=== PATIENT | male | born 1965 | race Two or more races ===

== ENCOUNTER 2019-03-23 12:59 | Outpatient (CLI) | payer OTHER ==
[2019-03-23] MEDS ORDERED: MULT-658 PO (13:34)
== END 2019-03-23 23:59 | disposition home or self-care (01) ==
LOC: STAR 12:59
PROVIDERS: ATTEND Orthopaedic Surgery
DX: Z02.9 Encounter for administrative examinations, unspecified (principal)

== ENCOUNTER 2019-03-27 07:26 | Day surgery (SDC) | payer OTHER ==
[~2019-03-27] VITALS: Ht 177.8 cm; Wt 91.6 kg
[~2019-03-27 07:26] MED LIST: BUPIVACAINE/PF 0.5% ONE; EPINEPHRINE 1 MG/ML, 1ML ONE; LIDOCAINE 1%, 20ML ONE; MULT-658 PO
[2019-03-27 08:04] VITALS: BP 150/95
[2019-03-27] MEDS ORDERED: LACTATED RINGERS 1,000 ML IV SCH (08:20)
[2019-03-27] MEDS ORDERED: MIDAZOLAM 1 MG/ML, 2ML ONE (08:20)
[2019-03-27] MEDS ORDERED: FENTANYL PF 100 MCG/2ML ONE ×2 (08:21→09:55)
[2019-03-27] MEDS ORDERED: DEXAMETHASONE 4 MG/ML, 1ML ONE (08:21)
[2019-03-27] MEDS ORDERED: PROPOFOL 10 MG/ML, 20ML ONE (08:21)
[2019-03-27] MEDS ORDERED: CEFAZOLIN 1,000 MG ONE (08:21)
[2019-03-27] MEDS ORDERED: ONDANSETRON 2MG/ML, 2ML ONE (08:21)
[2019-03-27] MEDS ORDERED: BUPIVACAINE/PF-EPI 0.5% 1:200K INFIL ONE (09:19)
[2019-03-27] MEDS ORDERED: LIDOCAINE 1%-EPI 1:100K, 30ML INFIL ONE (09:19)
[2019-03-27] MEDS ORDERED: ALBUTEROL SULFATE 2.5 MG/3 ML NPPB PRN (09:30)
[2019-03-27] MEDS ORDERED: KETOROLAC 30 MG/1 ML IV PRN (09:30)
[2019-03-27] MEDS ORDERED: hydrALAzine 20 MG/ML, 1ML IV PRN (09:30)
[2019-03-27] MEDS ORDERED: MEPERIDINE/PF 25MG/0.5ML IVPush PRN (09:30)
[2019-03-27] MEDS ORDERED: ACETAMINOPHEN 325 MG TABLET PO PRN (09:30)
[2019-03-27] MEDS ORDERED: DIAZEPAM 5 MG/ML, 2ML IVPush PRN (09:30)
[2019-03-27] MEDS ORDERED: PROMETHAZINE 25 MG/ML, 1ML IV PRN (09:30)
[2019-03-27] MEDS ORDERED: HYDROmorphone 2 MG/ML, 1ML IVPush PRN (09:30)
[2019-03-27] MEDS ORDERED: OXYcodone 5 MG/5 ML ORAL.SOL UDC PO PRN (09:30)
[2019-03-27] MEDS ORDERED: LABETALOL 5MG/ML, 20ML IV PRN (09:30)
[2019-03-27] MEDS ORDERED: KETOROLAC 30 MG/1 ML ONE (09:55)
[2019-03-27] MEDS ORDERED: ACETAMINOPHEN 650 MG/20.3 ML UDC ONE (09:55)
[2019-03-27] MEDS ORDERED: OXYcodone 5 MG/5 ML ORAL.SOL UDC ONE ×2 (09:55→09:58)
[2019-03-27] MEDS: FENTANYL PF 100 MCG/2ML IV PRN ×2 (09:56→10:12)
[2019-03-27] MEDS ORDERED: MEPERIDINE/PF 25MG/ML,1ML ONE (10:03)
== END 2019-03-27 12:25 | disposition home or self-care (01) ==
LOC: OUT 07:26
PROVIDERS: ATTEND Orthopaedic Surgery
DX: S83.231A Complex tear of medial meniscus, current injury, right knee, initial encounter (principal); M22.41 Chondromalacia patellae, right knee; G47.30 Sleep apnea, unspecified; Z79.1 Long term (current) use of non-steroidal anti-inflammatories (NSAID); X58.XXXA Exposure to other specified factors, initial encounter; Y93.89 Activity, other specified; Y92.89 Other specified places as the place of occurrence of the external cause; Y99.8 Other external cause status
CPT/HCPCS: 29881; J0171; J0690; J1100; J1885; J2175; J2250; J2405; J2704; J3010; J3490; J7120

== ENCOUNTER 2021-05-11 19:05 | Emergency (ER) | payer OTHER ==
[~2021-05-11] VITALS: Ht 175.3 cm; Wt 91.9 kg
[~2021-05-11 19:05] MED LIST changes: -BUPIVACAINE/PF 0.5% ONE; -EPINEPHRINE 1 MG/ML, 1ML ONE; -LIDOCAINE 1%, 20ML ONE
--- NOTE | 2021-05-11 19:13 | NUR ---
PT ON RESP [facility]
--- NOTE | 2021-05-11 19:24 | NUR ---
PT C/O OF BODY ACHES, FEVER/CHILLS, MALAISE, LOSS OF SENSE OF TASTES AND SMELL SINCE 1 WEEK AGO. PT TOOK IBUPROFEN 600MG 1 HOUR AGO. PT STATES HE BELIEVES HE GOT IT FROM [place]. PA AT BEDSIDE FOR EVAL, PERFORMING NASAL SWAB. ATTACHED TO MONITORS. VSS WITH ELEVATED HR. NADN. BED IN LOW POSITION, RAILS ENGAGED. CALL LIGHT ON LAP.
[2021-05-11] MEDS ORDERED: DEXAMETHASONE 4 MG TABLET PO ONE (20:00)
[2021-05-11] MEDS ORDERED: DEXAMETHASONE 4 MG TABLET ONE (20:22)
[2021-05-11 20:51] VITALS: BP 133/81
== END 2021-05-11 20:53 | disposition home or self-care (01) ==
LOC: ED 20:45
DX: U07.1 COVID-19 (principal); B34.9 Viral infection, unspecified
CPT/HCPCS: 71045; 99284; U0003; U0005